=== PATIENT | female | born 1940 | race Asian ===

== ENCOUNTER 2016-06-30 15:53 | Emergency (ER) | payer OTHER ==
[~2016-06-30 15:53] MED LIST: ALBUTEROL2.5 MG/3 M IN; FUROSEMIDE40 MG PO; GLIPIZIDE5 MG PO; LOVASTATIN20 MG PO; METFORMIN HCL500 MG PO; METOPROLOL TART25 MG PO; TRADJENTA5 MG; XARELTO10 MG PO
--- NOTE | 2016-06-30 16:59 | DIAGNOSTIC IMAGING REPORT ---
PROCEDURE: XR CHEST 2 VIEW INDICATION: COUGH AND FEVER TECHNIQUE: PA and lateral views. COMPARISON: Chest 05/01/2015 and 08/22/2011 FINDINGS: There is a new left lower lobe infiltrate, atelectasis and pleural effusion. Right lung is clear. No change in the cardiomegaly. IMPRESSION: 1. Left lower lobe infiltrate atelectasis and effusion.
--- NOTE | 2016-06-30 18:31 | ED CLINICAL REPORT ---
Clinical Report - Physicians/Mid Levels [facility] [address] [place] [address] 06/30/2016 15:54 Patient: BECCA DUNN Time Seen: 1622. Arrived- By private vehicle. Historian- patient and family. HISTORY OF PRESENT ILLNESS Chief Complaint: COUGH. This started past few days and is still present (staying the same). It was abrupt in onset and has been constant but is not gone now. The illness is described as moderate. The patient has had a cough, nasal congestion, fever and a nasal discharge. She has had sputum production (unknown). No sore throat. Additional history - The patient has had contact with a sick individual. (daughter with similar symptoms). Similar symptoms previously: None. Recent medical care: Not recently seen/assessed. REVIEW OF SYSTEMS No headache, abdominal pain, pedal edema, calf pain or difficulty with urination. No skin rash. All systems otherwise negative, except as recorded above. PAST HISTORY See nurses notes. SOCIAL HISTORY Never smoker. Not exposed to second-hand smoke at home. No alcohol use or drug use. No recent travel. Is a local resident. ADDITIONAL NOTES The nursing notes have been reviewed. PHYSICAL EXAM Vital Signs: 06/30/2016 16:08 BP: 159/80. HR: 69. RR: 20. O2 saturation: 94%. Temp: 99.1 F. Pain level now: 0/10. Oxygen saturation normal. Appearance: Alert. No acute distress. Eyes: Pupils equal, round and reactive to light. Eyes normal inspection. ENT: Ears normal. Nose normal. Pharynx normal. Uvula midline. Neck: Normal inspection. Neck supple. CVS: Normal heart rate and rhythm. Heart sounds normal. Pulses normal. Respiratory: No respiratory distress. Breath sounds normal. No rales, rhonchi, wheezes or stridor. Abdomen: Soft and nontender. No organomegaly. Back: Normal inspection. Skin: Skin warm and dry. Normal skin color. No rash. Normal skin turgor. Extremities: Extremities exhibit normal ROM. No lower extremity edema. Neuro: Oriented X 3. No motor deficit. No sensory deficit. LABS, X-RAYS, AND EKG Chest X-ray: (PROCEDURE: XR CHEST 2 VIEW INDICATION: COUGH AND FEVER TECHNIQUE: PA and lateral views. COMPARISON: Chest 05/01/2015 and 08/22/2011 FINDINGS: There is a new left lower lobe infiltrate, atelectasis and pleural effusion. Right lung is clear. No change in the cardiomegaly. IMPRESSION: 1. Left lower lobe infiltrate atelectasis and effusion.). Laboratory Tests: CBC w Diff: (YOAN: 06/30/2016 17:00) ( [facility] 06/30/2016 17:23) Final results Test Result Flag Units (Reference) WHITE BLOOD COUNT 15.5 H K/uL (4.5-11.5) RED BLOOD COUNT 4.57 M/uL (4.00-5.20) HEMOGLOBIN 12.3 gm/dL (12.0-16.0) HEMATOCRIT 38.5 % (36.0-46.0) MEAN CELL VOLUME 84 fL (80-100) MEAN CORPUSCULAR HGB 27 pg (26-34) MEAN CORPUSCULAR HGB CONC 32 g/dL (31-37) RED CELL DISTRIBUTION WIDTH 16.4 H % (11.6-14.8) PLATELET COUNT 239 K/uL (150-400) NEUTROPHIL % 77.5 H % (50-75) LYMPH % 10.5 L % (25-40) MONO % 11.2 % (3-14) EOSINOPHIL % 0.8 % (0-4) BASOPHIL % 0 % (0-2) Lactate, Serum: (YOAN: 06/30/2016 18:50) ( [facility] 06/30/2016 19:32) Final results Test Result Flag Units (Reference) LACTIC ACID 1.1 mmol/L (0.4-2.0) CMP: (YOAN: 06/30/2016 17:00) ( [facility] 06/30/2016 17:36) Final results Test Result Flag Units (Reference) GLUCOSE 202 H mg/dL (70-110) BUN 24 H mg/dL (7-18) CREATININE 1.3 mg/dL (0.6-1.3) Estimated GFR 42.33 mL/min Estimated GFR- 51.30 mL/min Note: Persistent reduction over 3 months in eGFR<60 mL/min/1.73 m2 defines CKD. Patients with eGFR values>=60 mL/min/1.73 m2 may also have CKD if evidence ofpersistent proteinuria. Additional information may be foundat www.kidney.org. SODIUM 139 mmol/L (136-145) POTASSIUM 3.5 mmol/L (3.5-5.1) CHLORIDE 99 mmol/L (98-107) CARBON DIOXIDE 35 H mmol/L (21-32) CALCIUM 9.2 mg/dL (8.5-10.1) TOTAL PROTEIN 8.0 g/dL (6.4-8.2) ALBUMIN 3.2 L g/dL (3.3-5.0) BILIRUBIN, TOTAL 0.5 mg/dL (0.0-1.0) ALKALINE PHOSPHATASE 101 U/L (46-116) AST (SGOT) 27 U/L (15-37) ALT (SGPT) 37 U/L (12-78) Blood Culture: (YOAN: 06/30/2016 17:08) ( [facility] 07/05/2016 17:09) Final results Is patient on antibiotics? N If so, list antibiotic: N/A Test Result Flag Units (Reference) CULTURE, BLOOD NO GROWTH Blood Culture: (YOAN: 06/30/2016 17:00) ( [facility] 07/05/2016 17:09) Final results Is patient on antibiotics? N If so, list antibiotic: N/A Test Result Flag Units (Reference) CULTURE, BLOOD NO GROWTH . PROGRESS AND PROCEDURES Course of Care: the patient is a pleasant 75-year-old female no pertinent past medical history presenting for evaluation of upper respiratory tract symptoms. Patient has a sick contact. Daughter has similar symptoms. Patient will be evaluated with laboratory studies. Reading treatment has been ordered for possible reactive airway disease and trial for improvement of symptoms. Patient is nontoxic and in no acute distress. Vital signs initially in the emergency department and noted to be unremarkable. The patient's workup initially is noted to be negative for any acute infiltrations or pneumonia. Is also clear in examination. Patient improved with the breathing treatment provided here in the emergency department. Because of this, patient will be discharged with a littoral inhaler. Because it is only remarkable for elevated white blood cell count of 15.5. No other acute abdomen maladies noted. Heart recently elevated after albuterol as been given. No other signs of hemodynamic instability. First dose sandbox provided here in the emergency department. Patient is reliable and has good outpatient resources. Patient is stable for outpatient management. Do not feel patient is admitted to the hospital require further emergency department workup/evaluation. patient has a follow-up appointment tomorrow. Of note, Medical decision making is being completed after the patient has been discussed vision from the emergency department. Final read from radiology indicates patient with lower lobe infiltrate. Patient is a 30 on the appropriate antibiotic therapy. We'll not mold changer. Do not fill patient is admitted to the hospital or any change in care. Patient has a follow-up appointment. CLINICAL IMPRESSION 06/30/2016 16:08 BP: 159/80. HR: 69. RR: 20. O2 saturation: 94%. Temp: 99.1 F. Pain level now: 0/10. Blood pressure normal. Oxygen saturation normal. Acute bacterial bronchitis. acute leukocytosis. INSTRUCTIONS Warnings: GENERAL WARNINGS: Return or contact your physician immediately if your condition worsens or changes unexpectedly, if not improving as expected, or if other problems arise. Specifically return if pain, vomiting, bleeding, breathing difficulty or fever. Your Current Medications: CONTINUE TAKING THE FOLLOWING MEDICATIONS: Glimepiride Oral : pt unsure of dose. Losartan Potassium Oral : pt unsure of dose. Lovastatin Oral : 20 mg daily. MetFORMIN HCl Oral : 500 mg 2x a day. Metoprolol Tartrate Oral : pt unsure of dose. Trygenta*. Xarelto Oral : daily, unsure of dose. Prescription Medications: Albuterol HFA oral inhaler: inhale 1 puff every 6 hours as needed for wheezing, difficulty breathing or shortness of breath. Dispense one (1) unit. No refill. Zithromax Z-Klever: Take according to package instructions. No refills. Substitution is permissible. Phenergan w/ Codeine 10mg / 6.25mg per 5 mL: take 1 teaspoon every 6 hours as needed for pain or cough. Dispense sixty (60) mL. No refill. Substitution is permissible. Follow-up: Return to the emergency department as needed. Follow up with your doctor in three days. Reason for referral: recheck today's concerns. Summary of care provided to patient via paper. Screening today revealed the patient's blood pressure to be in the normal range. The patient should follow up with a primary care provider for blood pressure management. Understanding of the discharge instructions verbalized by patient. (Electronically signed by Sarath Ferguson Dr. 07/06/2016 23:12)
--- NOTE | 2016-06-30 18:31 | ED NURSING NOTES ---
Clinical Report - Nurses [facility] [address] [place] [address] 06/30/2016 15:54 Patient: BECCA DUNN TRIAGE Triage time 16:08. Acuity: LEVEL 3. Chief Complaint: (Cough). --16:13 Sheriff Richards R.N. 16:08 06/30/16. BP: 159/80. HR: 69. RR: 20. O2 saturation: 94%. Temp: 99.1 F. Pain level now: 0/10. --16:13 Sheriff Richards R.N. 16:08 06/30/16. BP: 159/80. HR: 69. RR: 20. O2 saturation: 94%. Temp: 99.1 F. Pain level now: 0/10. --16:13 Sheriff Richards R.N. Weight: 70.3 kg stated. Height/Length: 61 inches Per Patient. BMI: 29.3. --16:07 Sheriff Richards R.N. Medications Glimepiride Oral (pt unsure of dose ). Losartan Potassium Oral (pt unsure of dose ). Lovastatin Oral 20 mg, daily. MetFORMIN HCl Oral 500 mg, 2x a day. Metoprolol Tartrate Oral (pt unsure of dose ). Trygenta. Xarelto Oral, daily (unsure of dose ). --16:10 Sheriff Richards R.N. Allergies NKA. --16:10 Sheriff Richards R.N. History Arrived by private vehicle. Historian: daughter. Accompanied by daughter. Onset. (3 days ago). SURGERY HX: ( RT Wrist). SOCIAL HX: Never smoker. No alcohol use or drug use. NUTRITIONAL RISK ASSESSMENT: The nutritional risk assessment revealed no deficiencies. FUNCTIONAL ASSESSMENT: Functional assessment: no impairments noted. LEARNING NEEDS ASSESSMENT: The learning needs assessment revealed no barriers. FALL RISK ASSESSMENT: Fall risk assessment completed. Risk factors identified include patient age greater than 65 years; Generalised weakness. SKIN INTEGRITY ASSESSMENT: Skin integrity risk assessment completed. No skin integrity risk identified. --16:13 Sheriff Richards R.N. PROBLEMS: Pancreatitis. Congestive Heart Failure. Atrial Fibrillation. CVA - Cerebrovascular Accident. Myocardial Infarction. Diabetes Mellitus. Heart Disease. Hypertension. Cellulitis. --16:10 Sheriff Richards R.N. Interventions ID band on patient. To room. --16:13 Sheriff Richards R.N. PHYSICAL ASSESSMENT GENERAL / NEURO / PSYCH: Alert. Oriented X 4. RESPIRATORY: Respirations not labored. CVS: Capillary refill less than 2 seconds. Pulses within normal limits. SKIN: Skin is warm and dry. --16:14 Sheriff Richards R.N. NURSING PROGRESS NOTES Head of bed elevated. Two patient identifiers checked. Call light placed in reach. Side rails up x 2. Bed placed in lowest position. Brakes of bed on. Patient ready for evaluation- chart flagged. --16:14 Sheriff Richards R.N. 17:13 06/30/2016 Duoneb (Ipratropium-Albuterol) Neb TX 1 unit dose given. Given by the respiratory therapist. Allergies verified and confirmed 5 rights. --17:13 Sheriff Richards R.N. 17:52 06/30/2016 Site #1 started via IV in the right wrist with an 22g angiocath, with aseptic technique and good blood return; one attempt. Saline lock flushed with 10 mL saline. --18:02 Everette Askew R.N. 18:32 06/30/2016 Azithromycin PO 500 mg given. Allergies verified and confirmed 5 rights. --18:32 Sheriff Richards R.N. DISPOSITION / DISCHARGE Learning barriers present. Ability to learn limited by language barrier; teaching performed with the family. Discharge instructions provided and reviewed with the family. Reviewed medication(s) side effects, precautions, dosing and course information. Family verbalized understanding. Written instructions provided in [employer]. The patient was discharged home and accompanied by family. She left the Emergency Department in a wheelchair and via private vehicle. Family member driving. --19:21 Sheriff Richards R.N. 19:18 06/30/16. BP: 148/76. HR: 110. RR: 16. O2 saturation: 97%. Temp: 98.9 F. --19:21 Sheriff Richards R.N. Locked/Released at 06/30/2016 19:22 by Sheriff Richards R.N.
--- NOTE | 2016-06-30 18:31 | ED ORDER SUMMARY ---
..... Patient: BECCA DUNN OrderSheet [facility] VisitID: [id number] [place] [address] 75y, F Registration Date/Time: 06/30/2016 ORDER SHEET Weight: 70.3 kg (stated) Allergies: NKA GENERAL ORDERS: Chest 2V Urgent (16:22 06/30/2016 Shell Ross) (Ack 16:37 LNations ER Tech1) (18:28 JBoardley R.N.) Blood Culture (No) (N/A) Urgent (16:37 06/30/2016 Shell Ross) (Ack 16:42 LNations ER Tech1) (18:28 JBoardley R.N.) CBC w Diff Urgent (16:37 06/30/2016 Shell Ross) (Ack 16:42 LNations ER Tech1) (18:28 JBoardley R.N.) CMP Urgent (16:37 06/30/2016 Shell Ross) (Ack 16:42 LNations ER Tech1) (18:28 JBoardley R.N.) Lactate, Serum Urgent (16:37 06/30/2016 Shell Ross) (Ack 16:42 LNations ER Tech1) (18:28 JBoardley R.N.) Pulse oximeter (16:38 06/30/2016 Shell Ross) (Ack 16:42 LNations ER Tech1) (18:28 JBoardley R.N.) MEDICATION ORDERS: DuoNeb Neb Tx 1 unit dose (NOW) (16:42 06/30/2016 Shell Ross) (17:13 SSambhung R.N.) Azithromycin PO 500 mg (NOW) (18:21 06/30/2016 Shell Ross) (Ack 18:32 JBoardleanna R.N.) (18:32 SSambou R.N.) IV FLUIDS: IV Saline Lock (16:38 06/30/2016 Shell Ross) (Ack 16:58 JBoardley R.N.) ORDER SHEET NOTES: [Electronically signed by Sheriff Barry Richards (19:06/30/2016)] [Electronically signed by Sarath Ferguson Dr. (23:12 07/06/2016)] [Electronically locked/signed by Sheriff Barry Richards (:06/30/2016)]
--- NOTE | 2016-06-30 18:31 | ED ORDER SUMMARY ---
..... Patient: BECCA DUNN OrderSheet [facility] VisitID: [id number] [place] [address] 75y, F Registration Date/Time: 06/30/2016 ORDER SHEET Weight: 70.3 kg (stated) Allergies: NKA GENERAL ORDERS: Chest 2V Urgent (16:22 06/30/2016 Shell Ross) (Ack 16:37 LNations ER Tech1) (18:28 JBoardley R.N.) Blood Culture (No) (N/A) Urgent (16:37 06/30/2016 Shell Ross) (Ack 16:42 LNations ER Tech1) (18:28 JBoardley R.N.) CBC w Diff Urgent (16:37 06/30/2016 Shell Ross) (Ack 16:42 LNations ER Tech1) (18:28 JBoardley R.N.) CMP Urgent (16:37 06/30/2016 Shell Ross) (Ack 16:42 LNations ER Tech1) (18:28 JBoardley R.N.) Lactate, Serum Urgent (16:37 06/30/2016 Shell Ross) (Ack 16:42 LNations ER Tech1) (18:28 JBoardley R.N.) Pulse oximeter (16:38 06/30/2016 Shell Ross) (Ack 16:42 LNations ER Tech1) (18:28 JBoardley R.N.) MEDICATION ORDERS: DuoNeb Neb Tx 1 unit dose (NOW) (16:42 06/30/2016 Shell Ross) (17:13 SSambhung R.N.) Azithromycin PO 500 mg (NOW) (18:21 06/30/2016 Shell Ross) (Ack 18:32 JBoardleanna R.N.) (18:32 SSambou R.N.) IV FLUIDS: IV Saline Lock (16:38 06/30/2016 Shell Ross) (Ack 16:58 JBoardley R.N.) ORDER SHEET NOTES: [Electronically signed by Sheriff Barry Richards (19:06/30/2016)] [Electronically signed by Sarath Ferguson Dr. (23:12 07/06/2016)] [Electronically locked/signed by Sheriff Barry Richards (:06/30/2016)]
--- NOTE | 2016-07-06 23:12 | ED MAR SUMMARY ---
..... Medication Administration Record [facility] [address] [place] [address] Patient: BECCA DUNN Visit ID: [id number] 75y, F Weight: 70.3 kg Height/Length: 61 in BMI: 29.3 ALLERGIES: NKA Given 17:13 06/30/2016 Sheriff Maurice RMin Medication Administered: DUONEB [NEB TX] (IPRATROPIUM-ALBUTEROL), Dose: 1 unit dose Neb TX. Medication Ordered: DuoNeb Neb Tx 1 unit dose (NOW). Given 18:32 06/30/2016 Sheriff Maurice RMin Medication Administered: AZITHROMYCIN [PO], Dose: 500 mg PO. Medication Ordered: Azithromycin PO 500 mg (NOW).
--- NOTE | 2016-07-06 23:12 | ED MED RECONCILIATION SUMMARY ---
Patient: BECCA DUNN Medication Reconciliation Report [facility] VisitID: [id number] [address] [place] [address] 75y, F Registration Date/Time: 06/30/2016 Weight: 70.3 kg Height/Length: 61 in. BMI: 29.3 ALLERGIES: NKA The patient's Home Medications are listed below: CONTINUE TAKING THE FOLLOWING MEDICATIONS: Glimepiride Oral, pt unsure of dose Losartan Potassium Oral, pt unsure of dose Lovastatin Oral 20 mg, daily MetFORMIN HCl Oral 500 mg, 2x a day Metoprolol Tartrate Oral, pt unsure of dose Trygenta Xarelto Oral, daily , unsure of dose The source(s) of the original Home Medication information: Not obtained. The following Medications were given to the patient in the Emergency Department: Duoneb [Neb Tx] Neb TX 1 unit dose, administered: 06/30/2016 5:13:00 PM Azithromycin [PO] PO 500 mg, administered: 06/30/2016 6:32:00 PM The following Medications were prescribed to the patient: Albuterol HFA oral inhaler: inhale 1 puff every 6 hours as needed for wheezing, difficulty breathing or shortness of breath. Dispense one (1) unit. No refill. -- Sarath Ferguson Dr. Zithromax Z-Klever: Take according to package instructions. No refills. Substitution is permissible. -- Sarath Ferguson Dr. Phenergan w/ Codeine 10mg / 6.25mg per 5 mL: take 1 teaspoon every 6 hours as needed for pain or cough. Dispense sixty (60) mL. No refill. Substitution is permissible. -- Sarath Ferguson Dr.
--- NOTE | 2016-07-06 23:12 | ED MAR SUMMARY ---
..... Medication Administration Record [facility] [address] [place] [address] Patient: BECCA DUNN Visit ID: [id number] 75y, F Weight: 70.3 kg Height/Length: 61 in BMI: 29.3 ALLERGIES: NKA Given 17:13 06/30/2016 Sheriff Maurice RMin Medication Administered: DUONEB [NEB TX] (IPRATROPIUM-ALBUTEROL), Dose: 1 unit dose Neb TX. Medication Ordered: DuoNeb Neb Tx 1 unit dose (NOW). Given 18:32 06/30/2016 Sheriff Maurice RMin Medication Administered: AZITHROMYCIN [PO], Dose: 500 mg PO. Medication Ordered: Azithromycin PO 500 mg (NOW).
--- NOTE | 2016-07-06 23:12 | ED DISCHARGE INSTRUCTIONS ---
Patient: BECCA DUNN General Instructions [facility] VisitID: [id number] [place] [address] 75y, F Registration Date/Time: 06/30/2016 06/30/2016 16:08 BP: 159/80. HR: 69. RR: 20. O2 saturation: 94%. Temp: 99.1 F. Pain level now: 0/10. Blood pressure normal. Oxygen saturation normal. Acute bacterial bronchitis. acute leukocytosis. INSTRUCTIONS Warnings: GENERAL WARNINGS: Return or contact your physician immediately if your condition worsens or changes unexpectedly, if not improving as expected, or if other problems arise. Specifically return if pain, vomiting, bleeding, breathing difficulty or fever. Your Current Medications: CONTINUE TAKING THE FOLLOWING MEDICATIONS: Glimepiride Oral : pt unsure of dose. Losartan Potassium Oral : pt unsure of dose. Lovastatin Oral : 20 mg daily. MetFORMIN HCl Oral : 500 mg 2x a day. Metoprolol Tartrate Oral : pt unsure of dose. Trygenta*. Xarelto Oral : daily, unsure of dose. Prescription Medications: Albuterol HFA oral inhaler: inhale 1 puff every 6 hours as needed for wheezing, difficulty breathing or shortness of breath. Dispense one (1) unit. No refill. Zithromax Z-Klever: Take according to package instructions. No refills. Substitution is permissible. Phenergan w/ Codeine 10mg / 6.25mg per 5 mL: take 1 teaspoon every 6 hours as needed for pain or cough. Dispense sixty (60) mL. No refill. Substitution is permissible. Follow-up: Return to the emergency department as needed. Follow up with your doctor in three days. Reason for referral: recheck today's concerns. Summary of care provided to patient via paper. Screening today revealed the patient's blood pressure to be in the normal range. The patient should follow up with a primary care provider for blood pressure management. Understanding of the discharge instructions verbalized by patient. ADDITIONAL INFORMATION Bronchitis (Adult: Abx Tx) BRONCHITIS is an infection of the air passages (bronchial tubes). It often occurs during the common cold. Symptoms include cough with mucus (phlegm) and low-grade fever. Bronchitis usually lasts 7-14 days. Mild cases can be treated with simple home remedies. More severe infection is treated with an antibiotic. Home Care: If symptoms are severe, rest at home for the first 2-3 days. When you resume activity, don't let yourself get too tired. Do not smoke. Avoid being exposed to the smoke of others. You may use acetaminophen (Tylenol) or ibuprofen (Motrin, Advil) to control fever or pain, unless another medicine was prescribed for this. [NOTE: If you have chronic liver or kidney disease or ever had a stomach ulcer or GI bleeding, talk with your doctor before using these medicines.] Your appetite may be poor, so a light diet is fine. Avoid dehydration by drinking 6-8 glasses of fluids per day (water, soft, drinks, juices, tea, soup, etc.). Extra fluids will help loosen secretions in the lungs. Sgmn-lec-gzodzkh cough medicines that containdextromethorphan(such as Robitussin DM) and decongestants (Actifed or Sudafed) may help relieve cough and congestion. [NOTE: Do not use decongestants if you have high blood pressure.] Finish all antibiotic medicine, even if you are feeling better after only a few days. Follow Up with your doctor or as directed if you dont start to feel better after three days. [NOTE: If you are age 65 or older, or if you have chronic asthma or COPD, we recommend a PNEUMOCOCCAL VACCINATION every five years and a yearly INFLUENZAVACCINATION (FLU-SHOT) every . Ask your doctor about this. If you had an X-ray, a radiologist will review it. You will be notified of any new findings that may affect your care.] Get Prompt Medical Attention if any of the following occur: Fever over 100.4F (38.0C) for more than three days Trouble breathing, wheezing or pain with breathing Coughing up blood or increased amounts of colored sputum Weakness, drowsiness, headache, facial pain, ear pain or a stiff neck Albuterol Sulfate Pressurized inhalation, suspension What is this medicine? ALBUTEROL (al BYOO ter ole) is a bronchodilator. It helps open up the airways in your lungs to make it easier to breathe. This medicine is used to treat and to prevent bronchospasm. How should I use this medicine? This medicine is for inhalation through the mouth. Follow the directions on your prescription label. Take your medicine at regular intervals. Do not use more often than directed. Make sure that you are using your inhaler correctly. Ask you doctor or health care provider if you have any questions. Talk to your flap maker regarding the use of this medicine in children. Special care may be needed. What side effects may I notice from receiving this medicine? Side effects that you should report to your doctor or health home health care worker as soon as possible: allergic reactions like skin rash, itching or hives, swelling of the face, lips, or tongue breathing problems chest pain feeling faint or lightheaded, falls high blood pressure irregular heartbeat fever muscle cramps or weakness pain, tingling, numbness in the hands or feet vomiting Side effects that usually do not require medical attention (report to your doctor or health home health care worker if they continue or are bothersome): cough difficulty sleeping headache nervousness or trembling stomach upset stuffy or runny nose throat irritation unusual taste What may interact with this medicine? anti-infectives like chloroquine and pentamidine caffeine cisapride diuretics medicines for colds medicines for depression or for emotional or psychotic conditions medicines for weight loss including some herbal products methadone some antibiotics like clarithromycin, erythromycin, levofloxacin, and linezolid some heart medicines steroid hormones like dexamethasone, cortisone, hydrocortisone theophylline thyroid hormones What if I miss a dose? If you miss a dose, use it as soon as you can. If it is almost time for your next dose, use only that dose. Do not use double or extra doses. Where should I keep my medicine? Keep out of the reach of children. Store at room temperature between 15 and 30 degrees C (59 and 86 degrees F). The contents are under pressure and may burst when exposed to heat or flame. Do not freeze. This medicine does not work as well if it is too cold. Throw away any unused medicine after the expiration date. Inhalers need to be thrown away after the labeled number of puffs have been used or by the expiration date; whichever comes first. Ventolin HFA should be thrown away 12 months after removing from foil pouch. Check the instructions that come with your medicine. What should I tell my health care provider before I take this medicine? They need to know if you have any of the following conditions: diabetes heart disease or irregular heartbeat high blood pressure pheochromocytoma seizures thyroid disease an unusual or allergic reaction to albuterol, levalbuterol, sulfites, other medicines, foods, dyes, or preservatives or trying to get breast-feeding What should I watch for while using this medicine? Tell your doctor or health home health care worker if your symptoms do not improve. Do not use extra albuterol. If your asthma or bronchitis gets worse while you are using this medicine, call your doctor right away. If your mouth gets dry try chewing sugarless gum or sucking hard candy. Drink water as directed. Azithromycin Oral tablet What is this medicine? AZITHROMYCIN (az ith miguelina MINA sin) is a macrolide antibiotic. It is used to treat or prevent certain kinds of bacterial infections. It will not work for colds, flu, or other viral infections. How should I use this medicine? Take this medicine by mouth with a full glass of water. Follow the directions on the prescription label. The tablets can be taken with food or on an empty stomach. If the medicine upsets your stomach, take it with food. Take your medicine at regular intervals. Do not take your medicine more often than directed. Take all of your medicine as directed even if you think your are better. Do not skip doses or stop your medicine early. Talk to your flap maker regarding the use of this medicine in children. Special care may be needed. What side effects may I notice from receiving this medicine? Side effects that you should report to your doctor or health home health care worker as soon as possible: allergic reactions like skin rash, itching or hives, swelling of the face, lips, or tongue confusion, nightmares or hallucinations dark urine difficulty breathing hearing loss irregular heartbeat or chest pain pain or difficulty passing urine redness, blistering, peeling or loosening of the skin, including inside the mouth white patches or sores in the mouth yellowing of the eyes or skin Side effects that usually do not require medical attention (report to your doctor or health home health care worker if they continue or are bothersome): diarrhea dizziness, drowsiness headache stomach upset or vomiting tooth discoloration vaginal irritation What may interact with this medicine? Do not take this medicine with any of the following medications: lincomycin This medicine may also interact with the following medications: amiodarone antacids cyclosporine digoxin magnesium nelfinavir phenytoin warfarin What if I miss a dose? If you miss a dose, take it as soon as you can. If it is almost time for your next dose, take only that dose. Do not take double or extra doses. Where should I keep my medicine? Keep out of the reach of children. Store at room temperature between 15 and 30 degrees C (59 and 86 degrees F). Throw away any unused medicine after the expiration date. What should I tell my health care provider before I take this medicine? They need to know if you have any of these conditions: kidney disease liver disease irregular heartbeat or heart disease an unusual or allergic reaction to azithromycin, erythromycin, other macrolide antibiotics, foods, dyes, or preservatives or trying to get breast-feeding What should I watch for while using this medicine? Tell your doctor or health home health care worker if your symptoms do not improve. Do not treat diarrhea with over the counter products. Contact your doctor if you have diarrhea that lasts more than 2 days or if it is severe and watery. This medicine can make you more sensitive to the sun. Keep out of the sun. If you cannot avoid being in the sun, wear protective clothing and use sunscreen. Do not use sun lamps or tanning beds/booths. You have been given the following additional information: Bronchitis, Antiobiotic Treatment (Adult) Albuterol Sulfate Pressurized inhalation, suspension Azithromycin Oral tablet (Electronically signed by Sarath Ferguson Dr. 07/06/2016 23:12)
--- NOTE | 2016-07-06 23:12 | ED MED RECONCILIATION SUMMARY ---
Patient: BECCA DUNN Medication Reconciliation Report [facility] VisitID: [id number] [address] [place] [address] 75y, F Registration Date/Time: 06/30/2016 Weight: 70.3 kg Height/Length: 61 in. BMI: 29.3 ALLERGIES: NKA The patient's Home Medications are listed below: CONTINUE TAKING THE FOLLOWING MEDICATIONS: Glimepiride Oral, pt unsure of dose Losartan Potassium Oral, pt unsure of dose Lovastatin Oral 20 mg, daily MetFORMIN HCl Oral 500 mg, 2x a day Metoprolol Tartrate Oral, pt unsure of dose Trygenta Xarelto Oral, daily , unsure of dose The source(s) of the original Home Medication information: Not obtained. The following Medications were given to the patient in the Emergency Department: Duoneb [Neb Tx] Neb TX 1 unit dose, administered: 06/30/2016 5:13:00 PM Azithromycin [PO] PO 500 mg, administered: 06/30/2016 6:32:00 PM The following Medications were prescribed to the patient: Albuterol HFA oral inhaler: inhale 1 puff every 6 hours as needed for wheezing, difficulty breathing or shortness of breath. Dispense one (1) unit. No refill. -- Sarath Ferguson Dr. Zithromax Z-Klever: Take according to package instructions. No refills. Substitution is permissible. -- Sarath Ferguson Dr. Phenergan w/ Codeine 10mg / 6.25mg per 5 mL: take 1 teaspoon every 6 hours as needed for pain or cough. Dispense sixty (60) mL. No refill. Substitution is permissible. -- Sarath Ferguson Dr.
== END 2016-06-30 19:18 | disposition home or self-care (01) ==
LOC: ED SRH 15:53
DX: J20.8 Acute bronchitis due to other specified organisms (principal); D72.829 Elevated white blood cell count, unspecified
CPT/HCPCS: 90065; 90074; 90100; 92031; 95059

== ENCOUNTER 2016-10-03 14:42 | Outpatient (CLI) | payer OTHER ==
--- NOTE | 2016-10-03 15:28 | DIAGNOSTIC IMAGING REPORT ---
PROCEDURE: XR CHEST 2 VIEW INDICATION: COUGH TECHNIQUE: PA and lateral view. COMPARISON: Chest x-ray 06/30/2016. FINDINGS: No evidence of pulmonary infiltrate or effusion. Stable moderate cardiomegaly. Mediastinum and pulmonary vessels are normal. Bony thorax is unremarkable. IMPRESSION: 1. No acute changes 2. Stable moderate cardiomegaly
== END 2016-10-03 23:00 | disposition home or self-care (01) ==
LOC: XR SRH 14:42
DX: R05 Cough (principal); I51.7 Cardiomegaly